=== PATIENT | male | born 1990 | race Caucasian/White ===

== ENCOUNTER 2024-10-19 22:29 | Inpatient (IN) | payer SELFPAY ==
[2024-10-19] MEDS ORDERED: Lorazepam 2 MG/ML VIAL ONE (23:27)
[2024-10-19] MEDS ORDERED: Ondansetron PF 4 MG/2 ML Vial ONE (23:34)
[2024-10-19] MEDS ORDERED: chlordiazePOXIDE HCl 25 MG CAP ONE (23:34)
[2024-10-20] MEDS ORDERED: Electrolyte Replacement Protocol FS SCH (02:00)
[2024-10-20 02:18] VITALS: BMI 34.4
[2024-10-20] MEDS ORDERED: Lorazepam 1 MG TAB ONE ×4 (02:50→14:08)
[2024-10-20] MEDS: Lorazepam 1 MG TAB PO SCH (02:51)
[2024-10-20] MEDS ORDERED: Ketorolac Tromethamine 30 MG (1 mL) VIAL ONE ×3 (04:01→14:16)
[2024-10-20] MEDS ORDERED: Lorazepam 2 MG/ML VIAL ONE ×2 (04:02→07:17)
[2024-10-20] MEDS: Ketorolac Tromethamine 30 MG (1 mL) VIAL IVP SCH (04:07)
[2024-10-20] MEDS: Lorazepam 2 MG/ML VIAL SLOW IVP SCH (04:08)
[2024-10-20 04:19] LABS: #Basophils 0.03 10x3/uL (0.0-0.2); %Basophils 0.4 % (0.0-1.0); %Lymphocytes 28.3 % (21.0-51.0); %Monocytes 9.6 % (0.0-10.0); %Neutrophils 59.3 % (42.0-75.0); Hemoglobin 15.4 g/dL (14.0-18.0); Mean Corpuscular HGB CONC 35.8 g/dL (32.0-36.0); Mean Corpuscular Hemoglobin 33.2 pg (27.0-31.0); Mean Corpuscular Volume 92.7 fL (78.0-98.0); Mean Platelet Volume 9.3 fL (7.4-10.4); Platelet Count 378 10x3/uL (130-400); RBC Distribution Width 12.3 % (11.5-14.5); Red Blood Cell (RBC) Count 4.64 mill/uL (4.70-6.10)
[2024-10-20 04:32] LABS: INR-International Normal Ratio 1.1; PTT 28.9 sec (22.9-36.1); Prothrombin Time 14.4 sec (12.0-14.7)
[2024-10-20 04:35] LABS: Lactic Acid 1.14 mmol/L (0.50-2.20)
[2024-10-20 05:36] LABS: Phosphorus 3.9 mg/dL (2.5-4.5)
[2024-10-20 05:41] LABS: ALT (SGPT) 75 U/L (Less than 45); AST (SGOT) 72 U/L (11-34); Alkaline Phosphatase 95 U/L (40-110); Anion Gap 19 mmol/L (10-20); BUN (Urea Nitrogen) 8 mg/dL (8.9-20.6); Bilirubin, Total 1.1 mg/dL (0.3-1.2); Calc. Creatinine Clearance 184 mL/min (70-130); Calcium 8.8 mg/dL (7.8-10.44); Carbon Dioxide 16 mmol/L (22-29); Chloride 105 mmol/L (98-107); Estimated GFR 111; Globulin 3.9 g/dL (2.4-3.5); Glucose 78 mg/dL (70-105); Magnesium 1.8 mg/dL (1.6-2.6); Protein, Total 7.9 g/dL (6.0-8.3); Sodium 136 mmol/L (136-145)
[2024-10-20] MEDS: Ketorolac Tromethamine 30 MG (1 mL) VIAL IVP PRN (06:12)
[2024-10-20] MEDS ORDERED: Magnesium 2 GM/50 ML BAG (IN WATER) ONE (06:14)
[2024-10-20] MEDS: Magnesium 2 GM/50 ML(in water) 2 GM in Premix 1 BAG IVPB SCH (06:23)
[2024-10-20] MEDS: Lorazepam 2 MG/ML VIAL IM PRN (07:20)
[2024-10-20] MEDS: Thiamine HCl 200 MG/2 ML VIAL SLOW IVP SCH ×2 (07:52→17:59)
[2024-10-20] MEDS ORDERED: Folic Acid 1 MG TAB ONE (07:54)
[2024-10-20] MEDS ORDERED: Multivit, Therapeutic 1 TAB ONE (07:55)
[2024-10-20] MEDS ORDERED: Enoxaparin 40 MG (0.4 mL) SYRINGE ONE (07:55)
[2024-10-20] MEDS ORDERED: Pantoprazole 40 MG VIAL ONE (07:55)
[2024-10-20] MEDS ORDERED: Gabapentin 300 MG CAP ONE (07:55)
[2024-10-20] MEDS: Enoxaparin 40 MG (0.4 mL) SYRINGE SC SCH (07:58)
[2024-10-20] MEDS: Gabapentin 300 MG CAP PO SCH (07:59)
[2024-10-20] MEDS: Multivit, Therapeutic 1 TAB PO SCH (07:59)
[2024-10-20] MEDS: Pantoprazole 40 MG VIAL IVP SCH (07:59)
[2024-10-20] MEDS: Folic Acid 1 MG TAB PO SCH (07:59)
[2024-10-20] MEDS ORDERED: Acetaminophen 325 MG TAB ONE (10:51)
[2024-10-20] MEDS: Acetaminophen 325 MG TAB PO PRN (10:55)
[2024-10-20] MEDS: Lorazepam 1 MG TAB PO PRN (10:55)
[2024-10-20 14:13] VITALS: BP 128/94
[2024-10-20] MEDS: Dexmedetomidine In 0.9 % NaCl 100 ML IVPB SCH (15:00)
[2024-10-20 20:09] LABS: Amphetamine Detected (NotDetected); Barbiturates Screen Not Detected (NotDetected); Benzodiazepine Screen Detected (NotDetected); Cocaine Metabolite Screen Not Detected (NotDetected); Methadone Not Detected (NotDetected); Methamphetamine Detected (NotDetected); Opiate Screen Not Detected (NotDetected); Oxycodone Screen Not Detected (NotDetected); Phencyclidine (PCP) Not Detected (NotDetected); THC/Cannabinoid Screen Not Detected (NotDetected); Tricyclic Screen Not Detected (NotDetected)
[2024-10-20] MEDS: Ondansetron PF 4 MG/2 ML Vial IVP PRN (22:38)
[2024-10-21] MEDS ORDERED: Lorazepam 1 MG TAB PO PRN (01:56)
[2024-10-21 04:09] LABS: #Basophils 0.03 10x3/uL (0.0-0.2); %Basophils 0.5 % (0.0-1.0); %Eosinophils 4.7 % (0.0-10.0); %Lymphocytes 21.5 % (21.0-51.0); Hematocrit 41.3 % (42.0-52.0); Hemoglobin 14.3 g/dL (14.0-18.0); Mean Corpuscular HGB CONC 34.6 g/dL (32.0-36.0); Mean Corpuscular Hemoglobin 32.9 pg (27.0-31.0); Mean Corpuscular Volume 94.9 fL (78.0-98.0); Mean Platelet Volume 9.4 fL (7.4-10.4); Platelet Count 319 10x3/uL (130-400); RBC Distribution Width 11.9 % (11.5-14.5); Red Blood Cell (RBC) Count 4.35 mill/uL (4.70-6.10)
[2024-10-21 07:22] LABS: Albumin 3.7 g/dL (3.1-4.5); Chloride 107 mmol/L (98-107); Potassium 3.6 mmol/L (3.5-5.1); Sodium 138 mmol/L (136-145)
[2024-10-21 07:23] LABS: Calcium 9.1 mg/dL (7.8-10.44); Glucose 85 mg/dL (70-105)
[2024-10-21 07:24] LABS: Globulin 3.3 g/dL (2.4-3.5)
[2024-10-21 07:25] LABS: Anion Gap 17 mmol/L (10-20); Carbon Dioxide 18 mmol/L (22-29)
[2024-10-21 07:26] LABS: Alkaline Phosphatase 86 U/L (40-110); Bilirubin, Total 0.9 mg/dL (0.3-1.2)
[2024-10-21 07:27] LABS: BUN (Urea Nitrogen) 15 mg/dL (8.9-20.6); Calc. Creatinine Clearance 195 mL/min (70-130); Estimated GFR 117
[2024-10-21 07:28] LABS: Magnesium 2.1 mg/dL (1.6-2.6)
[2024-10-21 07:29] LABS: ALT (SGPT) 64 U/L (Less than 45); AST (SGOT) 55 U/L (11-34)
[2024-10-21 10:56] VITALS: TEMP 98.3
[2024-10-22] MEDS ORDERED: Lorazepam 1 MG TAB PO PRN (01:56)
[2024-10-22] MEDS ORDERED: Lorazepam 0.5 MG TAB PO SCH (02:00)
[2024-10-22] MEDS ORDERED: FLU (Fluarix Triv) TS24-25(6MOS UP)/PF 45 MCG/0.5 ML Syringe IM ONE (09:00)
[2024-10-23] MEDS ORDERED: Lorazepam 0.5 MG TAB PO PRN (01:56)
[2024-10-23] MEDS ORDERED: Thiamine 100 MG TAB PO SCH ×2 (02:00→18:00)
== END 2024-10-21 10:45 | disposition home or self-care (01) | DRG 897 ==
LOC: ERS 22:29 → ERHOLD 10-20 00:49 → IMCU/EMU 10-20 14:38
PROVIDERS: ADMIT Internal Medicine; ATTEND Internal Medicine
PROC: HZ2ZZZZ Detoxification Services for Substance Abuse Treatment (ICD-10-PCS; principal; 2024-10-20)
DX: F10.231 Alcohol dependence with withdrawal delirium (principal); E87.20 Acidosis, unspecified; F17.210 Nicotine dependence, cigarettes, uncomplicated; R79.89 Other specified abnormal findings of blood chemistry; E66.811 Obesity, class 1; Z88.0 Allergy status to penicillin; Z68.34 Body mass index [BMI] 34.0-34.9, adult
CPT/HCPCS: 36415; 80053; 80306; 83605; 83735; 84100; 85025; 85610; 85730; J1650; J1885; J2060; J2405; J2470; J3411; J3475